=== PATIENT | male | born 1955 | race African-American/Black ===

== ENCOUNTER 2020-09-18 15:33 | Inpatient (IN) | payer OTHER ==
[~2020-09-18] VITALS: Ht 170.2 cm; Wt 99.8 kg
[2020-09-18] MEDS ORDERED: IV NORMAL SALINE 1000 ML BAG IV ONE (16:00)
[2020-09-18] MEDS ORDERED: ASPIRIN 325 MG TABLET PO ONE (16:00)
[2020-09-18] MEDS ORDERED: NITROGLYCERIN 0.4 MG/TAB BOTTLE SL ONE ×2 (16:00→16:05)
[2020-09-18 16:04] LABS: BASOPHILS # (AUTO) 0.1 K/uL (0.0-8.0); BASOPHILS % (AUTO) 0.9 % (0.0-2.0); EOSINOPHILS # (AUTO) 0.2 K/uL (0.0-0.7); EOSINOPHILS % (AUTO) 3.3 % (0.0-7.0); HEMATOCRIT 46.8 % (36.7-47.1); HEMOGLOBIN 15.7 g/dL (12.5-16.3); LYMPHOCYTES # (AUTO) 1.7 K/uL (20.0-40.0); MEAN CORPUSCULAR HEMOGLOBIN 30.4 uug (23.8-33.4); MEAN CORPUSCULAR HGB CONC 34 g/dL (32.5-36.3); MEAN CORPUSCULAR VOLUME 90.4 fL (73.0-96.2); MONOCYTES # (AUTO) 0.5 K/uL (2.0-10.0); MONOCYTES % (AUTO) 9.2 % (0.0-11.0); NEUTROPHILS % (AUTO) 55.6 % (38.5-71.5); PLATELET COUNT (AUTO) 273 K/uL (152-348); RED BLOOD CELL COUNT(AUTO) 5.17 MIL/uL (4.06-5.63); WHITE BLOOD COUNT (AUTO) 5.5 K/uL (3.6-10.2)
[2020-09-18] MEDS ORDERED: ASPIRIN 325 MG TABLET ONE (16:05)
[2020-09-18 16:07] LABS: CREATININE 1.8 mg/dL (0.6-1.3); POTASSIUM 3.5 mmol/L (3.5-5.1)
[2020-09-18 16:19] LABS: BILIRUBIN,DIRECT 0.1 mg/dL (0.0-0.2); BILIRUBIN,TOTAL 0.7 mg/dL (0.2-1.0)
[2020-09-18 18:57] VITALS: BP 149/91
[2020-09-18] MEDS ORDERED: ONDANSETRON 4 MG/2 ML VIAL IV PRN (19:15)
[2020-09-18] MEDS ORDERED: ENALAPRILAT DIHYDRATE 1.25 MG/1 ML VIAL IV PRN (19:15)
[2020-09-18] MEDS ORDERED: MAGNESIUM HYDROXIDE 30 ML LIQUID UDC PO PRN (19:15)
[2020-09-18] MEDS ORDERED: NITROGLYCERIN 0.4 MG/TAB BOTTLE SL PRN (19:15)
[2020-09-18] MEDS ORDERED: TEMAZEPAM 15 MG CAPSULE PO PRN (19:15)
[2020-09-18] MEDS ORDERED: ACETAMINOPHEN 325 MG TABLET PO PRN (19:15)
[2020-09-18] MEDS ORDERED: TRAM50TA2 PO (19:17)
[2020-09-18] MEDS ORDERED: OXYC30TA2 PO (19:17)
[2020-09-18] MEDS ORDERED: PROM6.256 PO (19:17)
[2020-09-18] MEDS ORDERED: ALPR2TAB7 PO (19:17)
[2020-09-18] MEDS ORDERED: FURO40TA5 PO (19:17)
[2020-09-18] MEDS ORDERED: LOSA100T3 PO (19:17)
[2020-09-18] MEDS ORDERED: HYDR50TA4 PO (19:17)
[2020-09-18] MEDS ORDERED: POTA-10 PO (19:17)
[2020-09-18] MEDS ORDERED: NAPR-1009 PO (19:17)
[2020-09-18 20:00] VITALS: BP 126/73
[2020-09-18] MEDS: HYDROCODONE/APAP 5-325MG TABLET PO PRN (20:46)
[2020-09-18] MEDS: METOPROLOL TARTRATE 25 MG TABLET PO SCH (20:47)
[2020-09-19] VITALS: BP 124/65
[2020-09-19 04:06] VITALS: BP 125/80
[2020-09-19] MEDS: PANTOPRAZOLE SODIUM 40 MG TABLET.DR PO SCH (05:59)
[2020-09-19 06:40] LABS: BASOPHILS # (AUTO) 0.1 K/uL (0.0-8.0); BASOPHILS % (AUTO) 1.4 % (0.0-2.0); EOSINOPHILS # (AUTO) 0.2 K/uL (0.0-0.7); EOSINOPHILS % (AUTO) 4.5 % (0.0-7.0); HEMATOCRIT 44.7 % (36.7-47.1); HEMOGLOBIN 14.9 g/dL (12.5-16.3); LYMPHOCYTES # (AUTO) 1.8 K/uL (20.0-40.0); LYMPHOCYTES % (AUTO) 36.1 % (20.5-51.5); MEAN CORPUSCULAR HEMOGLOBIN 30.5 uug (23.8-33.4); MEAN CORPUSCULAR HGB CONC 33 g/dL (32.5-36.3); MEAN CORPUSCULAR VOLUME 91.6 fL (73.0-96.2); MONOCYTES # (AUTO) 0.5 K/uL (2.0-10.0); MONOCYTES % (AUTO) 9.7 % (0.0-11.0); NEUTROPHILS # (AUTO) 2.3 K/uL (1.8-8.9); NEUTROPHILS % (AUTO) 48.3 % (38.5-71.5); PLATELET COUNT (AUTO) 242 K/uL (152-348); RED BLOOD CELL COUNT(AUTO) 4.89 MIL/uL (4.06-5.63); WHITE BLOOD COUNT (AUTO) 4.8 K/uL (3.6-10.2)
[2020-09-19 06:58] LABS: BILIRUBIN,TOTAL 0.9 mg/dL (0.2-1.0); CREATININE 1.8 mg/dL (0.6-1.3); PHOSPHOROUS 3.8 mg/dL (2.5-4.9); POTASSIUM 3.9 mmol/L (3.5-5.1)
[2020-09-19 07:19] LABS: THYROID STIMULATING HORMONE 1.441 mIU/mL (0.358-3.740)
[2020-09-19 08:25] VITALS: BP 155/89
[2020-09-19] MEDS: ASPIRIN 81 MG TAB.CHEW PO SCH (08:47)
[2020-09-19] MEDS: METOPROLOL TARTRATE 25 MG TABLET PO SCH ×2 (08:48→20:11)
[2020-09-19] MEDS ORDERED: ALBUTEROL SULFATE 2.5 MG/3 ML NEBU NEB PRN (09:15)
[2020-09-19] MEDS: FUROSEMIDE 40 MG TABLET PO SCH ×2 (09:15→09:35)
[2020-09-19] MEDS ORDERED: TRAMADOL HCL 50 MG TABLET PO PRN (09:15)
[2020-09-19] MEDS ORDERED: Medication Not On Formulary EA (Potassium Chloride (K-Dur) 10 MEQ) PO SCH (09:15)
[2020-09-19] MEDS ORDERED: IPRATROPIUM BROMIDE 0.5 MG/2.5 ML NEBU NEB PRN (09:15)
[2020-09-19] MEDS ORDERED: Medication Not On Formulary EA (Oxycodone Hcl 30 MG) PO PRN (09:15)
[2020-09-19] MEDS ORDERED: NAPROXEN 500 MG TABLET PO PRN (09:15)
[2020-09-19] MEDS ORDERED: LOSARTAN POTASSIUM 50 MG TABLET PO SCH (09:19)
[2020-09-19] MEDS: HYDROCHLOROTHIAZIDE 25 MG TABLET PO SCH (09:35)
[2020-09-19] MEDS: POTASSIUM CHLORIDE 10 MEQ TAB.PRT.SR PO SCH ×2 (09:35→16:21)
[2020-09-19 11:55] VITALS: BP 147/95
[2020-09-19] MEDS: HYDROCODONE/APAP 5-325MG TABLET PO PRN (14:45)
[2020-09-19] MEDS ORDERED: VALS160T29 PO (15:06)
[2020-09-19 16:00] VITALS: BP 140/84
[2020-09-19 20:00] VITALS: BP 110/51
[2020-09-19] MEDS ORDERED: ATORVASTATIN 40 MG TABLET PO SCH (21:00)
[2020-09-20] VITALS: BP 115/64
[2020-09-20 04:00] VITALS: BP 133/68
[2020-09-20 06:35] LABS: BASOPHILS # (AUTO) 0.1 K/uL (0.0-8.0); BASOPHILS % (AUTO) 1.1 % (0.0-2.0); EOSINOPHILS # (AUTO) 0.3 K/uL (0.0-0.7); EOSINOPHILS % (AUTO) 5.4 % (0.0-7.0); HEMATOCRIT 48.1 % (36.7-47.1); HEMOGLOBIN 16.1 g/dL (12.5-16.3); LYMPHOCYTES # (AUTO) 1.9 K/uL (20.0-40.0); LYMPHOCYTES % (AUTO) 35.9 % (20.5-51.5); MEAN CORPUSCULAR HEMOGLOBIN 30.8 uug (23.8-33.4); MEAN CORPUSCULAR HGB CONC 34 g/dL (32.5-36.3); MEAN CORPUSCULAR VOLUME 91.8 fL (73.0-96.2); MONOCYTES # (AUTO) 0.4 K/uL (2.0-10.0); MONOCYTES % (AUTO) 7.9 % (0.0-11.0); NEUTROPHILS # (AUTO) 2.6 K/uL (1.8-8.9); NEUTROPHILS % (AUTO) 49.7 % (38.5-71.5); PLATELET COUNT (AUTO) 250 K/uL (152-348); RED BLOOD CELL COUNT(AUTO) 5.24 MIL/uL (4.06-5.63); WHITE BLOOD COUNT (AUTO) 5.2 K/uL (3.6-10.2)
[2020-09-20 07:00] LABS: BILIRUBIN,TOTAL 0.6 mg/dL (0.2-1.0); CREATININE 1.7 mg/dL (0.6-1.3); PHOSPHOROUS 3.5 mg/dL (2.5-4.9); POTASSIUM 4.1 mmol/L (3.5-5.1); TOTAL PROTEIN, SERUM 7.6 g/dL (6.4-8.2)
[2020-09-20 08:00] VITALS: BP 150/94
[2020-09-20] MEDS ORDERED: REGADENOSON 0.4 MG/5 ML PREFILLED SYR IV ONE (08:00)
[2020-09-20] MEDS ORDERED: OXYCODONE HCL 10 MG TAB.SR.12H PO PRN (08:15)
[2020-09-20] MEDS ORDERED: NALOXONE HCL 0.4 MG/ML AMPUL IV PRN (08:15)
[2020-09-20] MEDS: POTASSIUM CHLORIDE 10 MEQ TAB.PRT.SR PO SCH (08:39)
[2020-09-20] MEDS: ASPIRIN 81 MG TAB.CHEW PO SCH (08:39)
[2020-09-20] MEDS: METOPROLOL TARTRATE 25 MG TABLET PO SCH (08:39)
[2020-09-20] MEDS: HYDROCHLOROTHIAZIDE 25 MG TABLET PO SCH (08:39)
[2020-09-20] MEDS: PANTOPRAZOLE SODIUM 40 MG TABLET.DR PO SCH (08:39)
[2020-09-20] MEDS ORDERED: VALSARTAN 160 MG TABLET PO SCH (09:00)
[2020-09-20] MEDS ORDERED: OXYCODONE HCL 5 MG TABLET PO PRN (09:00)
[2020-09-20 12:00] VITALS: BP 147/95
[2020-09-20] MEDS ORDERED: ATOR40TA PO (12:02)
[2020-09-20] MEDS ORDERED: ASPI81TA31 PO (12:02)
[2020-09-20] MEDS ORDERED: OXYC30TA2 PO (12:02)
[2020-09-20] MEDS ORDERED: METO25TA6 PO (12:14)
[2020-09-21 13:06] LABS: A/G RATIO 0.7 (0.7-1.7); ALBUMIN 2.9 g/dL (2.9-4.4); ALPHA-1-GLOBULIN 0.2 g/dL (0.0-0.4); ALPHA-2-GLOBULIN 0.8 g/dL (0.4-1.0); BETA GLOBULIN 1.1 g/dL (0.7-1.3); GLOBULIN, TOTAL 4.1 g/dL (2.2-3.9); M-SPIKE Not Observed g/dL (Not Observed)
== END 2020-09-20 14:10 | disposition home or self-care (01) | DRG 198 ==
LOC: ER 15:34 → TELE3 18:30
PROVIDERS: ADMIT Nurse Practitioner Acute Care; ATTEND Nurse Practitioner Acute Care
DX: I24.8 Other forms of acute ischemic heart disease (principal); N17.0 Acute kidney failure with tubular necrosis; E44.1 Mild protein-calorie malnutrition; E88.09 Other disorders of plasma-protein metabolism, not elsewhere classified; N28.1 Cyst of kidney, acquired; I12.9 Hypertensive chronic kidney disease with stage 1 through stage 4 chronic kidney disease, or unspecified chronic kidney disease; R10.31 Right lower quadrant pain; R94.31 Abnormal electrocardiogram [ECG] [EKG]; N18.9 Chronic kidney disease, unspecified; E78.5 Hyperlipidemia, unspecified; J44.9 Chronic obstructive pulmonary disease, unspecified; G89.29 Other chronic pain; Z87.891 Personal history of nicotine dependence; Y23.0XXS Shotgun discharge, undetermined intent, sequela; Z68.34 Body mass index [BMI] 34.0-34.9, adult; Z20.822 Contact with and (suspected) exposure to COVID-19
CPT/HCPCS: 36415; 70030-TC; 71045; 72170; 76770; 78452; 83735; 83970; 84100; 84155; 84165; 84443; 85025; 85730; 93005; 93307; A4663; A9502; G0378; J2785; J3490; J7030; U0003